=== PATIENT | male | born 1980 | race Caucasian/White ===

== ENCOUNTER 2017-03-13 07:27 | Inpatient (IN) | payer OTHER ==
[~2017-03-13] VITALS: Ht 172.7 cm; Wt 61.2 kg
--- NOTE | 2017-03-13 07:32 | NUR ---
TRIAGE: 36 Y/O MALE PRESENTS C/O 05/17 LEFT FLANK PAIN AND LOWER ABDOMINAL PAIN.L ONSET ON WEDNESDAY. PAIN THROBBING IN NATURE. HISTORY OF CHRONIC PANCREATITIS, ORIGINALLY FROM ALCOHOL CONSUMPTION.
--- NOTE | 2017-03-13 08:15 | NUR ---
PT TO ROOM [address] LOR CORREA AT BEDSIDE
--- NOTE | 2017-03-13 08:33 | NUR ---
LABS DRAWN AND SENT. URINE TRIO OBTAINED AND SENT. NS BOLUS INFUSING, PT MEDICATED WIH IV TORADOL PER eMAR.
[2017-03-13 08:39] LABS: ABSOLUTE BASOPHIL COUNT 0 /CUMM (0.0-0.2); ABSOLUTE EOSINOPHIL COUNT 0.3 /CUMM (0.0-0.7); ABSOLUTE GRANULOCYTE CT 5.1 /CUMM (1.4-6.5); ABSOLUTE LYMPH COUNT 1.1 /CUMM (1.2-3.4); ABSOLUTE MONOCYTE COUNT 0.5 /CUMM (0.10-0.60); BASOPHIL % 0.5 % (0.0-2.0); EOSINOPHIL % 3.7 % (0-5); GRANULOCYTE % 73.6 % (42.2-75.2); HEMATOCRIT 43.1 % (42-52); MEAN CORPUSCULAR HGB 29.2 PG (27.0-31.0); MEAN CORPUSCULAR HGB CONC 33.3 G/DL (33.0-37.0); MEAN CORPUSCULAR VOLUME 87.7 FL (80.0-94.0); MEAN PLATELET VOLUME 8.5 FL (7.4-10.4); PLATELET COUNT 174 /CUMM (130-400); RBC DISTRIBUTION WIDTH 14.4 % (11.5-14.5); RED BLOOD CELL CT 4.92 /CUMM (4.70-6.10); WHITE BLOOD CELL COUNT 6.9 /CUMM (4.8-10.8)
--- NOTE | 2017-03-13 08:56 | ED GI/GU/ABDOMINAL COMPLAINT ---
History of Present Illness General Chief Complaint: Abdominal Pain/Flank Pain Stated Complaint: LOWER ABD AND BACK PAIN Source: patient, old records Exam Limitations: no limitations Vital Signs & Intake/Output Vital Signs & Intake/Output Vital Signs Date Time Temp Pulse Resp B/P B/P Pulse O2 O2 Flow FiO2 Mean Ox Delivery Rate 03/13 1432 97.0 110 18 138/92 96 Room Air 03/13 0933 138/98 03/13 0929 96.5 78 18 138/102 100 / 0731 97.6 105 18 144/94 97 Room Air Room Air Allergies Coded Allergies: No Known Allergies (03/13/17) Reconcile Medications No Known Home Medications Triage Note: TRIAGE: 36 Y/O MALE PRESENTS C/O 05/17 LEFT FLANK PAIN AND LOWER ABDOMINAL PAIN.L ONSET ON WEDNESDAY. PAIN THROBBING IN NATURE. HISTORY OF CHRONIC PANCREATITIS, ORIGINALLY FROM ALCOHOL CONSUMPTION. Triage Nurses Notes Reviewed? yes Onset: 3 days Duration: day(s):, constant, continues in ED Timing: recent history Quality/Severity: aching, moderate Location: left flank, suprapubic Radiation: no radiation Activities at Onset: none Prior Abdominal Problems: pancreatitis 1 month ago Past Sexual History: Unobtainable at this time Modifying Factors: Improves With: rest. Worsens With: movement, palpation. Associated Symptoms: abdominal pain HPI: 3 days prior to admission patient complains of suprapubic aching mild to moderate in severity improved with Tylenol nonradiating. 2 days prior to admission he developed left flank pain worse with palpation and movement moderate in severity not relieved with Tylenol. 1 month prior to admission he was admitted to [facility]. with pancreatitis secondary to alcohol having follow-up labs last week. He denies fever chills chest pain cough shortness of breath headache dysuria rash bleeding. Past History Travel History Traveled to [place] past 21 day No Medical History Any Pertinent Medical History? see below for history Neurological: NONE EENT: NONE Cardiovascular: NONE Respiratory: NONE Gastrointestinal: NONE Hepatic: CHRONIC PANCREATITIS Musculoskeletal: NONE Psychiatric: NONE Surgical History Surgical History: non-contributory Psychosocial History Tobacco Use: Never used ETOH Use: denies use Illicit Drug Use: denies illicit drug use Family History Hx Contributory? No Review of Systems Review of Systems Constitutional: Reports: no symptoms. EENTM: Reports: no symptoms. Respiratory: Reports: no symptoms. Cardiovascular: Reports: no symptoms. GI: Reports: see HPI, abdominal pain. Genitourinary: Reports: no symptoms. Musculoskeletal: Reports: no symptoms. Skin: Reports: no symptoms. Neurological/Psychological: Reports: no symptoms. Hematologic/Endocrine: Reports: no symptoms. Immunologic/Allergic: Reports: no symptoms. All Other Systems: Reviewed and Negative Physical Exam Physical Exam General Appearance: well developed/nourished, alert, awake, anxious, mild distress, thin Head: atraumatic, normal appearance Eyes: Bilateral: normal appearance, PERRL, EOMI, normal inspection. Ears, Nose, Throat, Mouth: hearing grossly normal, moist mucous membrane Neck: normal inspection, supple, full range of motion, normal alignment Respiratory: normal breath sounds, chest non-tender, no respiratory distress, quiet respiration, lungs clear Cardiovascular: regular rate/rhythm, normal peripheral pulses, norml femoral pulses equa Peripheral Pulses: 4+ carotid (R), 4+ carotid (L) Gastrointestinal: normal bowel sounds, soft, tenderness (suprapubic) Male Genitals: normal genitalia Back: normal inspection, normal range of motion, no vertebral tenderness Extremities: normal range of motion, no ligament instability Neurologic/Psych: no motor/sensory deficits, awake, alert, oriented x 3, normal gait, normal mood/affect, desulfurizer machine II-XII nml as tested Skin: intact, normal color, warm/dry Core Measures ACS in differential dx? No Severe Sepsis Present: No Septic Shock Present: No Progress Differential Diagnosis: biliary colic, cholecystitis, gastritis, pancreatitis, pyelonephritis, ureterolithiasis Plan of Care: Orders Procedure Date/time Status HEPATIC FUNCTION PANEL 03/14 600 Active CBC WITHOUT DIFFERENTIAL 03/14 600 Active Clear Liquid Diet 03/13 L Complete Nothing by Mouth 03/13 D Active Vital Signs 03/13 1452 Active Teach/Educate 03/13 1452 Active Pain Treatment and Response 03/13 145 Active Nutritional Intake, Monitor 03/13 1452 Active Isolation 03/13 1452 Active Intake & Output 03/13 1452 Active Patient Care Conference 03/13 1452 Active Activity/Ambulation 03/13 1452 Active HIDA SCAN 03/13 1323 Active CULTURE,URINE 03/13 1323 Active Pathway - chart 03/13 1227 Active House Staff 03/13 1227 Active Patient Data 03/13 1227 Active Code Status 03/13 1227 Active Patient Data 03/13 1207 Active OXYGEN SETUP (GEN) 03/13 1036 Active Saline Lock 03/13 1036 Active Admit to inpatient 03/13 1036 Active Vital Signs 03/13 1036 Active Activity/Ambulation 03/13 1036 Active Code Status 03/13 1036 Complete BLOOD CULTURE 03/13 1035 Active URINALYSIS 03/13 0807 Complete LIPASE 03/13 08 Complete HIGH SENSITIVITY CRP 03/13 08 Complete COMPREHENSIVE METABOLIC PANEL 03/13 08 Complete CBC WITHOUT DIFFERENTIAL 03/13 08 Complete Intake & Output 03/13 0729 Active VTE Mechanical Prophylaxis 03/13 UNK Active Current Medications Sig/Tanika Start time Last Medication Dose Stop Time Status Admin Ampicillin Sodium/ 3,000 MG Q6 03/13 1800 AC Sulbactam Sodium (Unasyn) Sodium Chloride 100 ML (Normal Saline 0.9%) Dextrose/Sodium 1,000 ML Q6H 03/13 1330 AC 03/13 Chloride 1451 (D5W-1/2 Normal Saline 1000ML) Ondansetron HCl 4 MG Q6P PRN 03/13 1330 AC (Zofran) Pantoprazole Sodium 40 MG DAILY 03/13 1324 AC 03/13 (Protonix) 1451 Ibuprofen 600 MG Q6 PRN 03/13 1230 AC (Motrin) Ketorolac 15 MG Q6 PRN 03/13 1230 AC Tromethamine (Toradol) Morphine Sulfate 2 MG Q4 PRN 03/13 1230 AC 03/13 (Morphine) 1451 Enoxaparin Sodium 40 MG DAILY 03/13 1226 AC (Lovenox) Laboratory Tests 03/13/17 0825: Anion Gap 13, Estimated GFR > 60, BUN/Creatinine Ratio 17.1, Glucose 131 H, Calcium 9.2, Total Bilirubin 2.0 H, AST 422 H, ALT 333 H, Alkaline Phosphatase 278 H, C-React Prot High Sens 14.2 H, Total Protein 7.3, Albumin 4.3, Globulin 3.0, Albumin/Globulin Ratio 1.4, Lipase 587 H, CBC w Diff NO MAN DIFF REQ, RBC 4.92, MCV 87.7, MCH 29.2, RDW 14.4, MPV 8.5, Gran % 73.6, Lymphocytes % 15.3 L, Monocytes % 6.9, Eosinophils % 3.7, Basophils % 0.5, Absolute Granulocytes 5.1, Absolute Lymphocytes 1.1 L, Absolute Monocytes 0.5, Absolute Eosinophils 0.3, Absolute Basophils 0, PUBS MCHC 33.3 03/13/17 0820: Urinalysis HEAVY H, Urine Color ORANG H, Urine Clarity HAZY H, Urine pH 7.5, Ur Specific [place] 1.020, Urine Protein 30 H, Urine Ketones NEG, Urine Nitrite NEG, Urine Bilirubin NEG, Urine Urobilinogen 1.0, Ur Leukocyte Esterase NEG, Ur Microscopic SEDIMENT EXAMINED, Urine RBC RARE, Urine WBC RARE, Urine Bacteria FEW H, Urine Mucus MOD H, Urine Hemoglobin NEG, Urine Glucose 100 H Microbiology 03/13 1105 BLOOD: Blood Culture - RECD 03/13 1055 BLOOD: Blood Culture - RECD 03/13 0820 URINE ROUT: Urine Culture - RECD Diagnostic Imaging: Viewed by Me: Ultrasound. Discussed w/RAD: Ultrasound. Radiology Impression: Pancreas not well visualized. Upper normal size gallbladder. Mild gallbladder wall thickening. No gallstones seen. If there is clinical suspicion of acalculous cholecystitis, HIDA scan would be recommended. Initial ED EKG: none Departure Departure Disposition: STILL A PATIENT Condition: Stable Clinical Impression Primary Impression: Acute acalculous cholecystitis Referrals: [facility] (PCP/Family) Departure Forms: Customer Survey General Discharge Information Prescriptions: Current Visit Scripts No Known Home Medications Admission Note Spoke With: RAJI SLAUGHTER MD Documentation of Exam: Documentation of any treatments & extenuating circumstances including Concerns Regarding Discharge (functional status, medication knowledge or non-compliance, living conditions, etc.) that warrant an admission rather than observation: Nothing by mouth advance diet IV analgesia IV antibiotics GI evaluation medication adjustment continuing care discharge planning
--- NOTE | 2017-03-13 09:28 | NUR ---
PT STS STILL IN PAIN AND BP IS HIGH AND MD WILL BE UPDATED
--- NOTE | 2017-03-13 09:34 | NUR ---
MD HOROWITZ AT BEDSIDE TO DISCUSS POC WITH PT
--- NOTE | 2017-03-13 10:12 | NUR ---
PT LEFT AND BACK FROM U/S AND MEDICATED ORDERED
--- NOTE | 2017-03-13 10:17 | ULTRASOUND REPORT ---
EXAMINATION: US ABDOMEN LIMITED CLINICAL INFORMATION: Pancreatitis. COMPARISON: None TECHNIQUE: Real-time imaging of the right upper quadrant abdominal viscera. FINDINGS: PANCREAS: Not well visualized due to bowel gas. LIVER: Normal. The liver demonstrates normal size, contour and echogenicity. No focal lesion or intrahepatic biliary duct dilatation. GALLBLADDER: The gallbladder is upper normal in size measuring 10.3 x 3.5 x 3.5 cm in longitudinal, AP and transverse dimension. No gallstones are seen. There is mild gallbladder wall thickening measuring 4 mm. If there is clinical concern of acalculous cholecystitis, HIDA scan would be recommended. COMMON BILE DUCT: Normal in caliber measuring 0.3 cm in diameter. RIGHT KIDNEY: Normal. No hydronephrosis. No renal calculi or focal parenchymal lesions. The kidney measures 10.7 cm in maximum dimension. FREE FLUID: None. IMPRESSION: Pancreas not well visualized. Upper normal size gallbladder. Mild gallbladder wall thickening. No gallstones seen. If there is clinical suspicion of acalculous cholecystitis, HIDA scan would be recommended.
--- NOTE | 2017-03-13 11:23 | NUR ---
PT HAS IV UNASYN INFUSING
--- NOTE | 2017-03-13 12:24 | NUR ---
PT COMPLETED IV UNASYN BUT IV INFILTRATED AND ATTEMPT TO GET A SECOND IV UNSUCCESSFUL. PT AWARE WE WILL TRY AGAIN LATER. DR. SLAUGHTER EVALUATED PT
--- NOTE | 2017-03-13 13:19 | History & Physical ---
JULIUS QURESHI 03/13/17 1252: General Information and HPI MD Statement: I have seen and personally examined DEEPTI LUA and documented this H& P. The patient is a 36 year old M who presented with a patient stated chief complaint of [abdominal pain]. Source of Information: patient Exam Limitations: no limitations History of Present Illness: Patient is a 36-year-old male with past medical history of chronic pancreatitis( last episode was 7 weeks ago at [facility]) who presents with acute onset of left flank pain for the past 1 day. Patient reports that he has been having diffuse lower abdominal pain for several weeks since his last episode of appendicitis 7 weeks ago. He has been taking Tylenol with some relief in his pain. Yesterday he developed an acute onset of left flank pain 10 / 10 in intensity, throbbing, continuous with no radiation. He had some nausea but no vomiting, fevers, chills, chest pain, palpitations, urinary or bowel symptoms. Denies any recent history of trauma, travel, sick contacts. No previous histories of cholecystitis, hepatitis, IV drug abuse. The pain did not improve with Tylenol and PPIs. Patient thought that this could be another episode of pancreatitis and therefore came to seek help. He has history of heavy alcohol abuse however has not been drinking for the past 7 weeks since his last episode of pancreatitis. He had multiple episodes in the past. He also has history of GERD/esophagitis and follows up with a GI doctor in [place]. He was scheduled to get an outpatient endoscopy in a few days. In the ED vitals showed a temperature of 97.6, pulse 105, respiration 18, blood pressure 144/94 saturating 98% on room air. Labs were significant for elevated bilirubin to, AST 422, ALT 333, alkaline phosphatase 278, C-reactive protein 14.2, lipase 587. UA: Hazy, orange colored, negative nitrites, negative leukocyte esterase, negative bilirubin, few bacteria. Patient received IV Unasyn and IV Toradol in the ED. USG: normal size gallbladder. Mild gallbladder wall thickening. No gallstones seen. If there is clinical suspicion of acalculous cholecystitis, HIDA scan recommended. Pancreas not well visualized. Allergies/Medications Allergies: Coded Allergies: No Known Allergies (03/13/17) Home Med list No Known Home Medications Past History Travel History Traveled to [place] past 21 day No Medical History Neurological: NONE EENT: NONE Cardiovascular: NONE Respiratory: NONE Gastrointestinal: NONE Hepatic: CHRONIC PANCREATITIS Musculoskeletal: NONE Psychiatric: NONE Surgical History Surgical History: none Past Family/Social History Psychosocial History ETOH Use: denies use Illicit Drug Use: denies illicit drug use Sexual History Past Sexual History Unobtainable at this time Review of Systems Review of Systems Constitutional: Reports: malaise, weakness. EENTM: Reports: no symptoms. Cardiovascular: Reports: no symptoms. Respiratory: Reports: no symptoms. GI: Reports: abdominal pain, nausea. Genitourinary: Reports: no symptoms. Musculoskeletal: Reports: no symptoms. Skin: Reports: no symptoms. Neurological/Psychological: Reports: no symptoms. Exam & Diagnostic Data Last 24 Hrs of Vital Signs/I&O Vital Signs Date Time Temp Pulse Resp B/P B/P Pulse O2 O2 Flow FiO2 Mean Ox Delivery Rate 03/13 0933 138/98 03/13 0929 96.5 78 18 138/102 100 / 0731 97.6 105 18 144/94 97 Room Air Room Air Intake & Output 03/13 1600 03/13 0800 05 0000 Intake Total Output Total Balance Patient 61.235 kg Weight Weight Reported by Patient Measurement Method Physical Exam General Appearance Alert, Oriented X3, Cooperative, No Acute Distress Skin No Rashes, No Breakdown Skin Temp/Moisture Exam: Warm/Dry Sepsis Skin Exam (color): Normal for Ethnicity HEENT Atraumatic, PERRLA, EOMI, Mucous Membr. moist/pink Neck No JVD Lymphatic Cervical nl Cardiovascular Regular Rate, Normal S1, Normal S2, No Murmurs Lungs Clear to Auscultation, Normal Air Movement Abdomen DIFFUSE TENDERNESS IN THE SUPRAPUBIC REGION.NEGATIVE Randall SIGN Neurological Normal Gait, Normal Speech Extremities No Clubbing, No Cyanosis, No Edema, Normal Pulses Vascular Pulses Symmetrical Assessment/Plan Assessment: Patient is a 36-year-old male with past medical history of chronic pancreatitis( last episode was 7 weeks ago at [facility]) who presents with acute onset of left flank pain for the past 1 day. In the ED vitals showed a temperature of 97.6, pulse 105, respiration 18, blood pressure 144/94 saturating 98% on room air. Labs were significant for elevated bilirubin to, AST 422, ALT 333, alkaline phosphatase 278, C-reactive protein 14.2, lipase 587. UA: Hazy, orange colored, negative nitrites, negative leukocyte esterase, negative bilirubin, few bacteria. Patient received IV Unasyn and IV Toradol in the ED. USG: normal size gallbladder. Mild gallbladder wall thickening. No gallstones seen. If there is clinical suspicion of acalculous cholecystitis, HIDA scan recommended. Pancreas not well visualized. Assessment: * Acalculous cholecystitis with ultrasound evidence of mild gallbladder wall thickening * History of chronic pancreatitis. Recent episode of pancreatitis 7 weeks ago * History of esophagitis/GERD * Abdominal pain * Nausea Plan: * Admit to [facility] * Continue supportive care with gentle hydration with D5 half normal saline at 1 50 mL an hour. * Will maintain patient nothing by mouth for a HIDA scan for better visualization of the gallbladder * Aggressive pain control with IV Toradol and IV morphine as needed * IV Zofran for nausea [id number] when necessary * Follow up blood cultures * We'll continue IV Ceftriaxone and flagyl for now for anaerobic and gram- negative coverage. We will tailor antibiotics as per the culture and sensitivity * Trend CBCs and LFTs. No need to repeat lipase levels. * GI consult appreciated * Patient is not in sepsis at this time. If symptoms worsen,(fevers/hemodynamic instability/leukocytosis) a gangrene/perforation could be a possibility an emergent cholecystectomy might be needed. DVT prophylaxis subcutaneous heparin Nothing by mouth Full code Moderate to/severe pain pathway As Ranked By This Provider Problem List: 1. Acalculous cholecystitis Core Measures/Miscellaneous Acute Coronary Syndrome ACS Diagnosis: No Cerebrovascular Accident CVA/TIA Diagnosis: No Congestive Heart Failure CHF Diagnosis: No Venous Thromboembolism VTE Risk Factors: No Risk Factors No [facility] VTE prophylaxis d/t: No contraindications No VTE Pharm Prophylaxis d/t: No contraindications VTE Diagnosis: No VTE Type: NONE VTE Confirmed by (Test): NONE Severe Sepsis Severe Sepsis Present: No Septic Shock Septic Shock Present: No Miscellaneous Documentation Attending Case Discussed With: RAJI SLAUGHTER MD Primary Care Physician: [facility] Patient sees these Specialists GI doctor in [place] Level of Patient Care: General Medicine RAJI SLAUGHTER MD 03/13/17 1835: Attending MD Review Statement Attending Statement Attending MD Statement: examined this patient, discuss w/resident/PA/FLAKEBOARD LINE TENDER, agreed w/resident/PA/FLAKEBOARD LINE TENDER, reviewed EMR data (avail) Attending Assessment/Plan: 36M PMH chronic pancreatitis presenting with 2 days of epigastric and left sided abdominal pain. Pain was severe 10/10 early today radiating to the back associated with nausea. After IV hydration and Morphine, pain nearly resolved. Hemodynamically stable, non-tender abdomen on exam. Labs show significantly elevated LFTs and bili, ultrasound shows possible acalculous cholecystitis. Plan - Admit to general medicine - Start Ceftriaxone and Flagyl - Obtain MRCP - GI and surgery consults - NPO for now - Pain control - IV hydration - Monitor LFTs - Send blood cultures - DVT PPx
--- NOTE | 2017-03-13 13:27 | NUR ---
[facility] ASSIGNMENT [phone]
--- NOTE | 2017-03-13 13:57 | NUR ---
PLEASE CALL [facility] BACK FOR REPORT
--- NOTE | 2017-03-13 14:49 | NUR ---
REPORT GIVEN TO NURSE [facility] AND TRANSPORT CALLED
--- NOTE | 2017-03-13 15:40 | NUR ---
PT ARRIVED TO FLOOR VIA WHEELCHAIR FROM ED . PAIN LEVEL 01/15. VITAL SIGNS STABLE WNL. PT ORIENTED TO ROOM AND CALL LYNNE SYSTEM.
--- NOTE | 2017-03-13 18:39 | Admission Certification ---
Admission Certification Certification Statement - As attending physician, I certify that at the time of - admission, based on clinical presentation, severity of - symptoms, need for further diagnostic testing and - therapeutic interventions, and risk of adverse outcomes - without in-hospital treatment, in my clinical assessment, - this patient requires an acute hospital stay for a minimum - of two nights or longer. I have also considered psychsocial - factors such as support system, advanced age, financial - issues, cognitive issues, and failed out-patient treatments, - past re-admission history, safety of patient, and lack of - compliance as applicable. Specific rationale supporting this admission is: acalculous cholecystitis vs choledocholithiasis
[2017-03-13 22:37] VITALS: BP 130/88
[2017-03-14 06:30] VITALS: BP 128/80
--- NOTE | 2017-03-14 08:44 | PN- Housestaff ---
SHIRAANDRE 03/14/17 0844: Subjective Follow-up For: Left-sided flank pain and back pain. Subjective: No fevers overnight. Improvement in abdominal pain. No nausea, vomiting, constipation or diarrhea. Feels better overall. States urge to eat. Review of Systems Constitutional: Reports: see HPI. Objective Last 24 Hrs of Vital Signs/I&O Vital Signs Date Time Temp Pulse Resp B/P B/P Pulse O2 O2 Flow FiO2 Mean Ox Delivery Rate 03/14 1456 98.0 82 20 126/64 99 03/14 0630 98.9 58 20 128/80 98 Room Air 03/13 2237 98.2 70 19 130/88 99 Room Air Intake & Output 03/14 1600 03/14 0800 03/14 0000 Intake Total 1800 1200 1320 Output Total Balance 1800 1200 1320 Intake, IV 1200 1200 1200 Intake, Oral 600 120 Number 0 Bowel Movements Physical Exam General Appearance: Alert, Oriented X3, Cooperative HEENT: Atraumatic, PERRLA Cardiovascular: Regular Rate, Normal S1, Normal S2 Lungs: Clear to Auscultation, Normal Air Movement Abdomen: Normal Bowel Sounds, Soft, No Tenderness Neurological: Normal Gait, Normal Speech, Strength at 5/5 X4 Ext Assessment/Plan Assessment: 36-year-old gentleman presented to the ED 2 days ago with epigastric pain. Lower abdominal discomfort and left flank pain which was associated with nausea. Ultrasound at that time showed possibly acalculus cholecystitis, with some degree of transaminitis and mild elevation of bilirubin and alkaline phosphatase. 1. Imaging evidence of possible acalculus cholecystitis: Antibiotics discontinued, per GI recommendations. MRCP in the morning. Surgery consult pending results. Full liquid diet. Continue monitoring LFTs. IV hydration. Continue pain control. Problem List: 1. Acute acalculous cholecystitis Pain Ratin Pain Location: Left flank Pain Goal: Remain pain free Pain Plan: Toradol Tomorrow's Labs & Rationales: Yes, infection and LFTs. RAJI SLAUGHTER MD 03/14/17 9809: Attending MD Review Statement Attending Statement Attending MD Statement: examined this patient, discuss w/resident/PA/DIESEL ENGINE ERECTOR, agreed w/resident/PA/DIESEL ENGINE ERECTOR, reviewed EMR data (avail) Attending Assessment/Plan: 36M PMH chronic pancreatitis presenting with 2 days of epigastric and left sided abdominal pain. Pain was severe 10/10 early today radiating to the back associated with nausea. After IV hydration and Morphine, pain nearly resolved. Hemodynamically stable, non-tender abdomen on exam. Labs show significantly elevated LFTs and bili, ultrasound shows possible acalculous cholecystitis. Plan - Admit to general medicine - Start Ceftriaxone and Flagyl - GI and surgery consults - NPO for now - Pain control - IV hydration - Monitor LFTs - Send blood cultures - DVT PPx
--- NOTE | 2017-03-14 13:55 | Cons- Gastroenterology ---
General Information and HPI Consulting Request Date of Consult: 03/14/17 Requested By: RAJI SLAUGHTER MD Reason for Consult: Pancreatitis, acalculous cholecystitis on US. Source of Information: patient Exam Limitations: no limitations History of Present Illness: Mr. Dasilva is a 36 year old male with a history of etoh abuse who was recently discharged from [facility] about 7 weeks ago for pancreatitis who presented to yesterday with reports of worsening left sided abdominal pain over the past week. The patient reports that on Wednesday he developed lower cramping abdominal pain near his bladder which resolved with some Tylenol. The pain was not associated with any vomiting nor was it associated with any significant change in his bowel habits which he reports are normal. Then on the day before admission he developed left-sided flank/back pain which did not respond to Tylenol for which she came to the emergency room. The left-sided pain also was not associated with any vomiting or any significant change in his bowel habits. He also notes that this pain was not similar to his prior pancreatitis episode 2 months ago which he notes was in a different location. He denies any jaundice, cornell-colored stool, or dark urine. He has also been without any high temperature spikes. Since being discharged from the hospital several weeks ago he denies any smoking or alcohol use. He denies any burning epigastric discomfort or heartburn. In the emergency room the patient was given narcotics with good relief of his symptoms and he underwent an ultrasound after being noted to have increased liver function tests which showed evidence of acalculus cholecystitis. He has been afebrile, hemodynamic stable since admission and he has been tolerating a liquid diet. He denies any right upper quadrant pain. Allergies/Medications Allergies: Coded Allergies: No Known Allergies (03/13/17) Home Med List: Oxycodone HCl/Acetaminophen (Percocet 5-325 MG Tablet) 5 MG-325 MG TABLET 1 TAB PO Q6P PRN PAIN SCALE 4-6 (MODERATE) Current Medications: Current Medications Sig/Tanika Start time Last Medication Dose Route Stop Time Status Admin Ampicillin Sodium/ 3,000 MG Q6 03/13 1800 DC 03/13 Sulbactam Sodium IV 1739 Sodium Chloride 100 ML Ceftriaxone Sodium 1,000 MG DAILY 03/14 1000 AC 05/07 IV 0822 Dextrose/Sodium 1,000 ML Q6H 03/13 1330 AC 05/07 Chloride IV 0716 Enoxaparin Sodium 40 MG DAILY 03/13 1226 AC SC Ibuprofen 600 MG Q6 PRN 03/13 1230 AC PO Ketorolac 15 MG Q6 PRN 03/13 1230 AC 03/14 Tromethamine IV 1016 Metronidazole 500 MG IQ8 03/14 0000 AC 03/14 N/A 1 UNIT IV 0821 Morphine Sulfate 0 .STK-MED ONE 03/13 1443 DC .ROUTE Morphine Sulfate 2 MG Q4 PRN 03/13 1230 AC 03/14 IV 1053 Ondansetron HCl 4 MG Q6P PRN 03/13 1330 AC IV Pantoprazole Sodium 0 .STK-MED ONE 03/13 1438 DC IV Pantoprazole Sodium 40 MG DAILY 03/13 1324 AC 03/14 IV 0822 Past History Travel History Traveled to [place] past 21 day No Medical History Neurological: NONE EENT: NONE Cardiovascular: NONE Respiratory: NONE Gastrointestinal: NONE Hepatic: CHRONIC PANCREATITIS Musculoskeletal: NONE Psychiatric: NONE Surgical History Surgical History: non-contributory Psychosocial History Smoking Status: Never Smoked ETOH Use: denies use Illicit Drug Use: denies illicit drug use Review of Systems Review of Systems Constitutional: Denies: no symptoms. EENTM: Denies: no symptoms. Cardiovascular: Denies: no symptoms. Respiratory: Denies: no symptoms. GI: Reports: see HPI. Genitourinary: Denies: dysuria, frequency, hematuria. Musculoskeletal: Denies: no symptoms. Skin: Denies: no symptoms. Neurological/Psychological: Denies: no symptoms. Hematologic/Endocrine: Denies: no symptoms. Immunologic/Allergic: Denies: no symptoms. All Other Systems: Reviewed and Negative Exam & Diagnostic Data Vital Signs and I&O Vital Signs Date Time Temp Pulse Resp B/P B/P Pulse O2 O2 Flow FiO2 Mean Ox Delivery Rate 03/14 0630 98.9 58 20 128/80 98 Room Air 03/13 2237 98.2 70 19 130/88 99 Room Air 03/13 1432 97.0 110 18 138/92 96 Room Air Intake & Output 03/14 1600 03/14 0400 03/13 1600 03/13 0400 03/12 1600 03/12 0400 Intake Total 1200 1320 Output Total Balance 1200 1320 Intake, IV 1200 1200 Intake, Oral 120 Number 0 Bowel Movements Patient 135 lb Weight Weight Reported by Patient Measurement Method Physical Exam General Appearance: well developed/nourished, no apparent distress, alert, awake , comfortable Head: atraumatic, normal appearance Eyes: Bilateral: normal appearance. Ears, Nose, Throat: normal pharynx, normal ENT inspection, hearing grossly normal Neck: normal inspection, supple, full range of motion, JVD Respiratory: normal breath sounds, chest non-tender, no respiratory distress Cardiovascular: regular rate/rhythm Gastrointestinal: normal bowel sounds, soft, non-tender, no organomegaly Rectal: deferred Back: normal inspection, normal range of motion Extremities: normal inspection, normal capillary refill, normal range of motion Neurologic/Psych: no motor/sensory deficits, awake, alert, oriented x 3 Skin: intact, normal color, warm/dry Results Pertinent Lab Results: Laboratory Tests 03/13 03/13 0825 0820 Chemistry Sodium (137 - 145 mmol/L) 141 Potassium (3.5 - 5.1 mmol/L) 4.0 Chloride (98 - 107 mmol/L) 100 Carbon Dioxide (22 - 30 mmol/L) 27 Anion Gap (5 - 16) 13 BUN (9 - 20 mg/dL) 12 Creatinine (0.7 - 1.2 mg/dL) 0.7 Estimated GFR (>60 ml/min) > 60 BUN/Creatinine Ratio (7 - 25 %) 17.1 Glucose (65 - 99 mg/dL) 131 H Calcium (8.4 - 10.2 mg/dL) 9.2 Total Bilirubin (0.2 - 1.3 mg/dL) 2.0 H AST (17 - 59 U/L) 422 H ALT (21 - 72 U/L) 333 H Alkaline Phosphatase (< 127 U/L) 278 H C-React Prot High Sens (1.0 - 3.0 mg/L) 14.2 H Total Protein (6.3 - 8.2 g/dL) 7.3 Albumin (3.5 - 5.0 g/dL) 4.3 Globulin (1.9 - 4.2 gm/dL) 3.0 Albumin/Globulin Ratio (1.1 - 2.2 %) 1.4 Lipase (23 - 300 U/L) 587 H Hematology CBC w Diff NO MAN DIFF REQ WBC (4.8 - 10.8 /CUMM) 6.9 RBC (4.70 - 6.10 /CUMM) 4.92 Hgb (14.0 - 18.0 G/DL) 14.4 Hct (42 - 52 %) 43.1 MCV (80.0 - 94.0 FL) 87.7 MCH (27.0 - 31.0 PG) 29.2 RDW (11.5 - 14.5 %) 14.4 Plt Count (130 - 400 /CUMM) 174 MPV (7.4 - 10.4 FL) 8.5 Gran % (42.2 - 75.2 %) 73.6 Lymphocytes % (20.5 - 51.1 %) 15.3 L Monocytes % (1.7 - 9.3 %) 6.9 Eosinophils % (0 - 5 %) 3.7 Basophils % (0.0 - 2.0 %) 0.5 Absolute Granulocytes (1.4 - 6.5 /CUMM) 5.1 Absolute Lymphocytes (1.2 - 3.4 /CUMM) 1.1 L Absolute Monocytes (0.10 - 0.60 /CUMM) 0.5 Absolute Eosinophils (0.0 - 0.7 /CUMM) 0.3 Absolute Basophils (0.0 - 0.2 /CUMM) 0 PUBS MCHC (33.0 - 37.0 G/DL) 33.3 Urines Urinalysis HEAVY H Urine Color (YEL,AMB,STR) ORANG H Urine Clarity (CLEAR) HAZY H Urine pH (5.0 - 8.0) 7.5 Ur Specific [place] (1.001 - 1.035) 1.020 Urine Protein (NEG,<30 MG/DL) 30 H Urine Ketones (NEG) NEG Urine Nitrite (NEG) NEG Urine Bilirubin (NEG) NEG Urine Urobilinogen (0.1 - 1.0 EU/dl) 1.0 Ur Leukocyte Esterase (NEG) NEG Ur Microscopic SEDIMENT EXAMINED Urine RBC (0 - 5 /HPF) RARE Urine WBC (0 - 2 /HPF) RARE Urine Bacteria (NEG/NONE) FEW H Urine Mucus (FEW,NONE) MOD H Urine Hemoglobin (NEG) NEG Urine Glucose (N MG/DL) 100 H Imaging/Other Studies: EXAM TYPE: US - US-LIMITED ABDOMEN EXAMINATION: US ABDOMEN LIMITED CLINICAL INFORMATION: Pancreatitis. COMPARISON: None TECHNIQUE: Real-time imaging of the right upper quadrant abdominal viscera. FINDINGS: PANCREAS: Not well visualized due to bowel gas. LIVER: Normal. The liver demonstrates normal size, contour and echogenicity. No focal lesion or intrahepatic biliary duct dilatation. GALLBLADDER: The gallbladder is upper normal in size measuring 10.3 x 3.5 x 3.5 cm in longitudinal, AP and transverse dimension. No gallstones are seen. There is mild gallbladder wall thickening measuring 4 mm. If there is clinical concern of acalculous cholecystitis, HIDA scan would be recommended. COMMON BILE DUCT: Normal in caliber measuring 0.3 cm in diameter. RIGHT KIDNEY: Normal. No hydronephrosis. No renal calculi or focal parenchymal lesions. The kidney measures 10.7 cm in maximum dimension. FREE FLUID: None. IMPRESSION: Pancreas not well visualized. Upper normal size gallbladder. Mild gallbladder wall thickening. No gallstones seen. If there is clinical suspicion of acalculous cholecystitis, HIDA scan would be recommended. Assessment/Plan Assessment/Recommendations: Assessment: Mr. Durham is a 36 year old male with a history of etoh abuse and chronic pancreatits who presented to yesterday with complaints of left-sided flank and back pain of uncertain etiology. His lipase is only mildly elevated and while these symptoms could be secondary to pancreatitis without further imaging this is a difficult distention to make. That being said, as he is currently improving clinically with only minimal narcotics being required I'm not certain that making this distinction is absolutely necessary. He was noted to have evidence of acalculus cholecystitis on an ultrasound based on a thickened gallbladder, but there was no significant stranding and he is without any complaints of right upper quadrant pain or any right upper quadrant tenderness on physical exam which makes this diagnosis unlikely. A HIDA scan has been ordered, however I would defer to surgery to see if that is actually necessary as this can potentially have a false positive result which may then lead to his surgery which he may not need. Of note he does have a moderate transaminitis with an AST to ALT ratio approaching 2-1 suggestive of possible recent alcohol intake, but he denies this and his LFTs checked a few times over the past month were normal or had an opposite ratio (ie alt > ast). As his bilirubin is now also mildly elevated as is his alk phos I do feel it may be reasonable to check an MRCP to evaluate for any choledocolithiasis and also to re-evaluate his GB for any stones or sludge as it is possible his pancreatitis is biliary in etiology and not from etoh as I'm not certain he really drinks enough to get pancreatitis. Recommendations: 1. Would observe off of antibiotics. 2. Advance diet as tolearted 3. Agree with surgical consult and would hold off on the HIDA scan unless they recommend it as he currently has no clinical evidence of cholecystitis and his labs and history are not at all concernign for biliary obstruction. 4. Analgesia as needed and would attempt to change to PO pain medications. 5. Would change his IV protonix to PO omeprazole daily 6. Avoid/minimize nsaid use 7. Follow daily LFTs and get any recent blood work and imaging done at his prior hospitalization in [facility]. 8. Check an MRCP in the am. I will continue to follow this patient and make further recommendations based on his clinical course. Problem List: 1. Acalculous cholecystitis 2. Acute acalculous cholecystitis Copies To: [facility] EAST APRN; DREW CID,JORDI Krishnan. Consult Acknowledgment - Thank you for your consult request.
[2017-03-14 14:56] VITALS: BP 126/64
[2017-03-14 19:50] LABS: ABSOLUTE BASOPHIL COUNT 0 /CUMM (0.0-0.2); ABSOLUTE EOSINOPHIL COUNT 0.2 /CUMM (0.0-0.7); ABSOLUTE LYMPH COUNT 1.5 /CUMM (1.2-3.4); ABSOLUTE MONOCYTE COUNT 0.3 /CUMM (0.10-0.60); BASOPHIL % 0.4 % (0.0-2.0); EOSINOPHIL % 3.7 % (0-5); GRANULOCYTE % 65.7 % (42.2-75.2); MEAN CORPUSCULAR HGB 29.2 PG (27.0-31.0); MEAN CORPUSCULAR VOLUME 88.6 FL (80.0-94.0); MEAN PLATELET VOLUME 9.3 FL (7.4-10.4); PLATELET COUNT 147 /CUMM (130-400); RBC DISTRIBUTION WIDTH 14.6 % (11.5-14.5); RED BLOOD CELL CT 4.29 /CUMM (4.70-6.10); WHITE BLOOD CELL COUNT 6.1 /CUMM (4.8-10.8)
[2017-03-14 22:33] VITALS: BP 122/80
[2017-03-15 06:56] VITALS: BP 124/86
--- NOTE | 2017-03-15 08:23 | NUR ---
PT TAKEN VIA WC TO MRI. PT SELF REPORTS HAVING WIRE IN JAW FROM SURGERIES. REPORTED TO EQUIPMENT DETAILER. PER MRI, OK TO SEND PT.
[2017-03-15 08:51] LABS: ABSOLUTE BASOPHIL COUNT 0 /CUMM (0.0-0.2); ABSOLUTE EOSINOPHIL COUNT 0.3 /CUMM (0.0-0.7); ABSOLUTE LYMPH COUNT 1.8 /CUMM (1.2-3.4); ABSOLUTE MONOCYTE COUNT 0.4 /CUMM (0.10-0.60); BASOPHIL % 0.3 % (0.0-2.0); EOSINOPHIL % 5.6 % (0-5); GRANULOCYTE % 54.2 % (42.2-75.2); HEMATOCRIT 36.5 % (42-52); MEAN CORPUSCULAR HGB 29.5 PG (27.0-31.0); MEAN CORPUSCULAR HGB CONC 33.3 G/DL (33.0-37.0); MEAN CORPUSCULAR VOLUME 88.4 FL (80.0-94.0); MEAN PLATELET VOLUME 9.1 FL (7.4-10.4); PLATELET COUNT 144 /CUMM (130-400); RBC DISTRIBUTION WIDTH 14.5 % (11.5-14.5); RED BLOOD CELL CT 4.13 /CUMM (4.70-6.10); WHITE BLOOD CELL COUNT 5.6 /CUMM (4.8-10.8)
--- NOTE | 2017-03-15 08:58 | PN- Housestaff ---
JOSHUA CID,JONAS 03/15/17 0858: Subjective Follow-up For: abdominal pain Subjective: Saw patient at bedside the same. He stated his abdominal pain for appropriate however he did have some 3 out of 10 pain in his left flank. MRCP this AM. Nothing by mouth pending the exam. Review of Systems Constitutional: Denies: chills, fever, weakness. EENTM: Reports: no symptoms. Cardiovascular: Reports: no symptoms. Respiratory: Reports: no symptoms. Gastrointestinal: Reports: abdominal pain. Denies: bloating, constipation, diarrhea, distention, bowel incontinence, melena, nausea, changes in stool. Genitourinary: Reports: no symptoms. Musculoskeletal: Reports: no symptoms. Objective Last 24 Hrs of Vital Signs/I&O Vital Signs Date Time Temp Pulse Resp B/P B/P Pulse O2 O2 Flow FiO2 Mean Ox Delivery Rate 03/15 0656 99.9 76 16 124/86 98 Room Air 03/14 2233 98.2 80 16 122/80 98 Room Air Intake & Output 03/15 1600 03/15 0800 03/15 0000 Intake Total 1400 600 400 Output Total Balance 1400 600 400 Intake, IV 600 600 300 Intake, Oral 800 100 Physical Exam General Appearance: Alert, Oriented X3, Cooperative, No Acute Distress Skin: No Significant Lesion HEENT: Atraumatic, PERRLA, EOMI Neck: Supple Cardiovascular: Regular Rate, Normal S1, Normal S2 Lungs: Normal Air Movement Abdomen: Soft, No Tenderness Neurological: Normal Speech Current Medications: Current Medications Sig/Tanika Start time Last Medication Dose Route Stop Time Status Admin Ceftriaxone Sodium 1,000 MG DAILY 03/14 1000 DC 03/14 IV 0822 Dextrose/Sodium 1,000 ML Q13H 03/14 1700 DC 03/15 Chloride IV 0334 Dextrose/Sodium 1,000 ML Q6H 03/13 1330 DC 03/14 Chloride IV 1523 Enoxaparin Sodium 40 MG DAILY 03/13 1226 DCD SC Ibuprofen 600 MG Q6 PRN 03/13 1230 DC PO Ketorolac 15 MG .STK-MED ONE 03/14 1611 DC Tromethamine IM 03/14 1612 Ketorolac 15 MG Q6 PRN 03/13 1230 DC 03/15 Tromethamine IV 0033 Metronidazole 500 MG IQ8 03/14 0000 DC 03/14 N/A 1 UNIT IV 0821 Morphine Sulfate 2 MG Q4 PRN 03/13 1230 NC 03/15 IV 0943 Omeprazole 40 MG DAILY AC 03/15 0700 NCD 03/15 PO 0547 Ondansetron HCl 4 MG Q6P PRN 03/13 1330 DCD IV Oxycodone/ 1 TAB Q6P PRN 03/15 1100 NCD 03/15 Acetaminophen PO 1327 Pantoprazole Sodium 40 MG DAILY 03/13 1324 NC 03/14 IV 0822 Patient Medication 1 ED .STK-MED ONE 03/15 1348 [facility] ED 03/15 1349 Patient Medication 1 UNIT ONE NR 03/15 1100 [facility] ED 03/15 1700 Patient Medication 1 UNIT ONE NR 03/14 1615 [facility] ED 03/14 1700 Last 24 Hrs of Lab/Tobi Results Last 24 Hrs of Labs/Mics: Laboratory Tests 03/15/17 0630: Anion Gap 11, Estimated GFR > 60, BUN/Creatinine Ratio 5.0 L, Total Bilirubin 0.7, Direct Bilirubin 0.4, AST 39, ALT 128 H, Alkaline Phosphatase 157 H, Total Protein 5.5 L, Albumin 3.0 L, CBC w Diff NO MAN DIFF REQ, RBC 4.13 L, MCV 88.4, MCH 29.5, RDW 14.5, MPV 9.1, Gran % 54.2, Lymphocytes % 32.7, Monocytes % 7.2, Eosinophils % 5.6 H, Basophils % 0.3, Absolute Granulocytes 3.0, Absolute Lymphocytes 1.8, Absolute Monocytes 0.4, Absolute Eosinophils 0.3, Absolute Basophils 0, PUBS MCHC 33.3 03/14/17 1835: Total Bilirubin 0.9, Direct Bilirubin 0.4, AST 63 H, ALT 172 H, Alkaline Phosphatase 193 H, Total Protein 6.2 L, Albumin 3.5, Lipase 268, CBC w Diff NO MAN DIFF REQ, RBC 4.29 L, MCV 88.6, MCH 29.2, RDW 14.6 H, MPV 9.3, Gran % 65.7 , Lymphocytes % 24.5, Monocytes % 5.7, Eosinophils % 3.7, Basophils % 0.4, Absolute Granulocytes 4.0, Absolute Lymphocytes 1.5, Absolute Monocytes 0.3, Absolute Eosinophils 0.2, Absolute Basophils 0, PUBS MCHC 33.0 Assessment/Plan Assessment: This is a 36-year-old male with past medical history of chronic pancreatitis with last episode about 7 weeks ago. He complains of new onset left flank pain associated with some nausea. There was question regarding etiology of recurrent pancreatitis possibly secondary to choledocholithiasis. An ultrasound during this admission showed acalculous cholecystitis. PLAN 1. Abdominal pain: Patient came in with AST 422, ALT 33, alkaline phosphatase 278, lipase 587, T bili 2.0. He does have history of alcohol intake. He states he has not had single drink in the past 7 weeks. However AST still seems to be greater than ALT. Unsure of etiology of repeated episodes of pancreatitis. He went for MRCP this a.m. per GI recommendations. The exam showed evidence of some mild pancreatitis but no evidence of cholelithiasis or choledocholithiasis. There was some gallbladder thickening visualized. Per surgery patient could be discharged today with close follow-up on the outpatient basis. Given patient's unusual presentation and new onset left flank pain, most likely etiology of abdominal pain is secondary to his chronic pancreatitis. His UA was negative of any significant findings. * Regular diet as patient requested and tolerates * GI consult * MRCP this a.m. * Continue PPI * Consult against alcohol intake * No evidence of cholelithiasis, however his gallbladder thickening seen. Follow-up outpatient with PCP and outpatient surgical consult. * Pain control with Percocet * Follow-up outpatient with PCP for subsequent laboratory follow-up UA shows heavy protein: Follow-up outpatient per PCP full code chemical dvt ppx regular diet Problem List: 1. Acalculous cholecystitis Pain Ratin Pain Location: none Pain Goal: Remain pain free Pain Plan: current reg Tomorrow's Labs & Rationales: none ADRIANE FRANCES 03/15/17 1342: Attending MD Review Statement Attending Statement Attending MD Statement: examined this patient, discuss w/resident/PA/[employer] FARMWORKER, agreed w/resident/PA/[employer] FARMWORKER, discussed with family, reviewed EMR data (avail), discussed with nursing, discussed with case mgmt, reviewed images, amended to note Attending Assessment/Plan: 36M PMH chronic pancreatitis presenting with 2 days of epigastric and left sided abdominal pain. Pain was severe 10/10 early today radiating to the back associated with nausea. After IV hydration and Morphine, pain nearly resolved. Hemodynamically stable, non-tender abdomen on exam. Labs show significantly elevated LFTs and bili, ultrasound shows possible acalculous cholecystitis. Plan - Admit to general medicine - Pain improved, MRCP with mild pancreatitis. - toelrating PO , d/c today after GI clearance.
--- NOTE | 2017-03-15 09:59 | MRI REPORT ---
EXAMINATION: MR ABDOMEN WITHOUT CONTRAST/MRCP CLINICAL INFORMATION: Evaluate for cholecystitis. Pancreatitis. COMPARISON: None. TECHNIQUE: An MRI scan of the abdomen was performed using multiple imaging sequences and imaging planes. As per the MRCP protocol, heavily T2-weighted 3-D high-resolution MRCP sequences were obtained in the coronal plane along with thin and thick slab coronal images and coronal MIP reconstructions. FINDINGS: GALLBLADDER, BILIARY TREE: The gallbladder is well visualized and is mildly distended but not hydropic in appearance. No gallbladder wall thickening or pericholecystic fluid is seen. No gallstones are visualized. The intra and extrahepatic bile ducts appear normal. Cystic duct is partially visualized and appears unremarkable. The common bile duct measures 0.4 cm in maximal diameter. No abnormal filling defects seen within the bile ducts. LIVER: Normal size and signal. No hepatic steatosis. No significant focal mass on noncontrast study. PANCREAS: Slight indistinctness of the peripancreatic fat planes is seen due to mild edema. Findings would be consistent with the clinical history of pancreatitis. No pancreatic ductal dilatation is seen. Pancreatic duct is partially visualized and is 0.2 cm in maximal diameter. No peripancreatic fluid collections are noted. SPLEEN: Unremarkable. ADRENAL GLANDS AND KIDNEYS: Both adrenal glands and kidneys are unremarkable. BOWEL LOOPS: Small and large bowel loops are decompressed and unremarkable. LYMPHOVASCULAR STRUCTURES: Abdominal aorta is normal in caliber. No periaortic collections. No significant adenopathy seen. BONES: Unremarkable. IMPRESSION: 1. By MRI scan, the gallbladder appears unremarkable. No gallbladder wall thickening or pericholecystic fluid is seen. No evidence of cholecystitis is seen. Would recommend close clinical correlation and serial ultrasound follow-up if appropriate. 2. No evidence of biliary obstruction. 3. Findings consistent with mild pancreatitis. No peripancreatic fluid collections noted.
[2017-03-15] MEDS ORDERED: PERCOCET 5-3251 EACH PO (10:59)
--- NOTE | 2017-03-15 11:01 | Patient Discharge Instructions ---
Discharge Instructions General Discharge Information You were seen/treated for: MILD ABDOMINAL PAIN You had these procedures: NONE Special Instructions: PLEASE F/U WITH PCP IN 1 WEEK OF DISCHARGE PLEASE ABSATIN FROM ALCOHOL CAN WORSEN THE PANCREATITIS Acute Coronary Syndrome Inclusion Criteria At DC or during hospital stay patient has or had the following: ACS DIAGNOSIS No Discharge Core Measures Meds if any: Prescribed or Continued at Discharge Meds if any: NOT Prescribed or Continued at Discharge Congestive Heart Failure Inclusion Criteria At DC or during hospital stay patient has or had the following: CHF DIAGNOSIS No Discharge Core Measures Meds if any: Prescribed or Continued at Discharge Meds if any: NOT Prescribed or Continued at Discharge Cerebrovascular accident Inclusion Criteria At DC or during hospital stay patient has or had the following: CVA/TIA Diagnosis No Discharge Core Measures Meds if any: Prescribed or Continued at Discharge Meds if any: NOT Prescribed or Continued at Discharge Venous thromboembolism Inclusion Criteria VTE Diagnosis No VTE Type NONE VTE Confirmed by (Test) NONE Discharge Core Measures - Per Current guidelines, there needs to be overlap - treatment for the first 5 days of Warfarin therapy. - If discharged on Warfarin prior to 5 days of - overlap therapy, the patient will need to be - assessed for post discharge needs including - *Post discharge parental anticoagulation - *Warfarin and/or parental anticoagulation education - *Follow up date to check INR post discharge At least 5 days overlap therapy as Inpatient No Meds if any: Prescribed or Continued at Discharge Note: Overlap Therapy is Warfarin and Anticoagulant Meds if any: NOT Prescribed or Continued at Discharge
--- NOTE | 2017-03-25 13:09 | Discharge Summary ---
Visit Information Visit Dates Admission Date: 03/13/17 Discharge Date: 03/15/17 Hospital Course Course Attending Physician: ADRIANE FRANCES MD Primary Care Physician: [facility] E[facility] APRN Hospital Course: This is a 36-year-old male with past medical history of chronic pancreatitis with last episode about 7 weeks ago. He complains of new onset left flank pain associated with some nausea. Patient was seen for the following problems 1. Abdominal pain: Patient came in with AST 422, ALT 33, alkaline phosphatase 278, lipase 587, T bili 2.0. He does have history of alcohol intake. He states he has not had single drink in the past 7 weeks. However AST still seems to be greater than ALT. Unsure of etiology of repeated episodes of pancreatitis. He went for MRCP this a.m. per GI recommendations. The exam showed evidence of some mild pancreatitis but no evidence of cholelithiasis or choledocholithiasis. There was some gallbladder thickening visualized. Per surgery patient could be discharged today with close follow-up on the outpatient basis. Given patient's unusual presentation and new onset left flank pain, most likely etiology of abdominal pain is secondary to his chronic pancreatitis. His UA was negative of any significant findings. * Continue PPI * Counseled against alcohol intake * No evidence of cholelithiasis, however his gallbladder thickening seen. Follow-up outpatient with PCP and outpatient surgical consult. * Pain control with Percocet * Follow-up outpatient with PCP for subsequent laboratory follow-up re LFTs UA shows heavy protein: Follow-up outpatient per PCP full code chemical dvt ppx regular diet Allergies: Coded Allergies: No Known Allergies (03/13/17) Disposition Summary Disposition Principal Diagnosis: chronic pancreatitis Additional Diagnosis: gallbladder thickening Discharge Disposition: home or self care Discharge Instructions General Discharge Information Code Status: Full Code Patient's Diet: as counseled by GI for his chronic pancreatitis Patient's Activity: as tolerated Follow-Up Instructions/Appts: see above Medications at Discharge Discharge Medications: Start taking the following new medications: Oxycodone HCl/Acetaminophen (Percocet 5-325 MG Tablet) 5 MG-325 MG TABLET 1 Tablet ORAL EVERY SIX HOURS NEEDED as needed for PAIN SCALE 4-6 ( MODERATE) Qty = 10 No Refills Comments: Last Taken: 03/15/17 Time: 1:30pm Copies To: [facility] EAST APRN
== END 2017-03-15 14:50 ==
LOC: ERH 07:27 → ERHI 10:36 → 2NA 10:36 → ENRESERV 13:18 → 2NA 15:32 → ENPENDDIS 03-15 13:54 → 2NA 03-15 14:50
PROVIDERS: Emergency Medicine; Internal Medicine Hematology & Oncology; Student in an Organized Health Care Education/Training Program; ADMIT Internal Medicine
DX: K81.0 Acute cholecystitis (principal); K86.1 Other chronic pancreatitis; K21.9 Gastro-esophageal reflux disease without esophagitis
CPT/HCPCS: 2NAP; 74181; 81001; 82436; 87040; 87086; 96361; 96365; 96375; J0696; J1650; J1885; J2405; J7042